=== PATIENT | female | born 1965 | race Caucasian/White ===

== ENCOUNTER 2017-05-08 15:50 | Inpatient (IN) | payer BC ==
[2017-05-08] MEDS ORDERED: Bisacodyl 5 MG Tab PO PRN (16:43)
[2017-05-08] MEDS ORDERED: Docusate Sodium 100 MG Cap PO PRN (16:43)
[2017-05-08] MEDS ORDERED: Ondansetron 4 MG/2 ML SDV IV PRN (16:43)
[2017-05-08] MEDS ORDERED: Polyethylene Glycol 3350 Powder 17 GM Packet PO PRN (16:43)
[2017-05-08] MEDS ORDERED: Pantoprazole 40 MG Vial ONE (16:43)
[2017-05-08] MEDS ORDERED: LORazepam 2 MG/ML MDV IV PRN (16:43)
[2017-05-08] MEDS ORDERED: Promethazine 12.5 MG in Sodium Chloride 0.9% 50 ML IV PRN (16:43)
[2017-05-08] MEDS ORDERED: HYDROmorphone 0.5 MG/0.5 ML Syringe IVPUSH PRN (16:43)
[2017-05-08] MEDS ORDERED: Acetaminophen 325 MG Tab PO PRN (16:43)
[2017-05-08] MEDS ORDERED: Albuterol/Ipratropium 3.0-0.5 MG/3 ML Neb Soln NEB PRN (16:43)
[2017-05-08] MEDS ORDERED: Temazepam 15 MG Cap PO PRN (16:43)
--- NOTE | 2017-05-08 16:43 | PCM.HP ---
H&P History of Present Illness - General Date of Service: 05/08/17 Admit Problem/Dx: Acute Mild Pancreatitis Source of Information: Patient, Provider, RN Notes Reviewed, Other (Clinic notes ) History Limitations: Reports: No Limitations - History of Present Illness Initial Comments - Free Text/Narative: This is a 51 yo white female with past medical hx/o lower abdominal pain, bilateral hip arthritis, bilateral hip bursitis, esophageal spasm, chronic fatigue, external hemorrhoids, left hip pain possible due to early chondrocalcinosis, and tinea versicolor, who initially initially seen at [facility] and was found to have a subtle early pancreatitis on abdominal/ pelvis CT scan. Patient reports abdominal pain that started Thursday. She describes her pain as sharp with radiation to the back. She kind of feels bloated, gassy and constipated. She rates her pain at 5/10. Her pain was worse last night and rates it at 12 out of 10 after she had something to eat. However she denies any other associated GI symptoms. She took Advil and Dulcolax but without much relief. Her last menstrual period was last Thursday and ended on Thursday. Patient presented to her primary care office today for worsening abdominal pain. She denies any signs of systemic infection. She reports no urinary issues. Her initial workup in the clinic shows a CMP significant for glucose of 125, alkaline phosphatase of 145, AST of 69, ALT of 104, and amylase of 156. Lipase level is still pending. Her CBC is unremarkable. Her UA is not suggestive of urinary tract infection. Abdominal/pelvis CT scan with contrast report reads subtle early changes of acute pancreatitis. No evidence of pancreatic necrosis, hemorrhage, or abscess. Small probable benign hemangioma in the dome of the right hepatic lobe measuring up to 2.2 x 2.8 cm. Liver, gallbladder, spleen, pancreas, adrenal glands, and both kidneys are otherwise clearly normal in appearance. No evidence for bowel obstruction or free intraperitoneal air. Normal appendix. Fallopian tube closure devices bilaterally. No definite pathologic lymphadenopathy. No acute bony abnormalities. Patient comes in as a direct admission for medical management of subtle acute pancreatitis. She is full code. Upper Abdomen Pain Score (Numeric/FACES): 3 - Related Data Allergies/Adverse Reactions: Allergies Allergy/AdvReac Type Severity Reaction Status Date / Time hay fever Allergy Mild Sneezing Uncoded 05/08/17 18:36 Home Medications: Home Meds Multivitamin [Multivitamins] 1 tab PO DAILY 12/26/13 [History] Fexofenadine/Pseudoephedrine [Marta-D 12 Hour] 1 tab PO DAILY 10/30/14 [ History] Cholecalciferol (Vitamin D3) [Vitamin D3] 2,000 unit PO 05/08/17 [History] Social & Family History - Tobacco Use Smoking Status *Q: Never Smoker Second Hand Smoke Exposure: No - Recreational Drug Use Recreational Drug Use: No H&P Review of Systems - Review of Systems: Review Of Systems: See Below General: Denies: Fever, Chills, Malaise, Weakness, Fatigue HEENT: Reports: No Symptoms Pulmonary: Denies: Shortness of Breath Cardiovascular: Denies: Chest Pain, Palpitations, Dyspnea on Exertion, Lightheadedness Gastrointestinal: Reports: Abdominal Pain, Constipation, Vomiting (bloated and gassy) Genitourinary: Reports: No Symptoms Musculoskeletal: Reports: Back Pain. Denies: Neck Pain, Joint Pain, Muscle Pain , Muscle Stiffness Skin: Denies: Cyanosis, Mottled, Pallor, Bruising, Rash, Erythema, Wound, Lesions Psychiatric: Denies: Confusion, Depression, Anxiety, Agitation, Hallucinations Neurological: Denies: Confusion, Difficulty Walking, Weakness, Gait Disturbance Hematologic/Lymphatic: Reports: No Symptoms Immunologic: Reports: No Symptoms Exam - Exam Exam: See Below - Exam General: Alert, Oriented, Cooperative, Mild Distress, Other (Obese) HEENT: Conjunctiva Clear, EACs Clear, EOMI, Hearing Intact, Mucosa Moist & [place] , Nares Patent, Normal Nasal Septum, Posterior Pharynx Clear, Pupils Equal, Pupils Reactive Neck: Supple, Trachea Midline, +2 Carotid Pulse wo Bruit, Full Range of Motion Lungs: Clear to Auscultation, Normal Respiratory Effort Cardiovascular: Regular Rate, Regular Rhythm GI/Abdominal Exam: Normal Bowel Sounds, Soft, No Organomegaly (epigastric), No Distention, No Abnormal Bruit, No Mass, Tender. No: Guarding, Rigid, Rebound, Hepatomegaly (Female) Exam: Deferred Rectal (Female) Exam: Deferred Back Exam: Normal Inspection, Decreased Range of Motion Extremities: Normal Inspection, Normal Range of Motion, Non-Tender, No Pedal Edema, Normal Capillary Refill Peripheral Pulses: 3+: Posterior Tibial (L), Posterior Tibial (R), Dorsalis Pedis (L), Dorsalis Pedis (R) Skin: Warm, Dry, Intact Neuro Extensive - Mental Status: Oriented x3, Normal Cognition, Memory Intact Neuro Extensive - Motor, Sensory, Reflexes: CN II-XII Intact, Normal Gait Psychiatric: Alert, Normal Affect, Normal Mood - Patient Data Result Diagrams: 05/09/17 06:00 *Q Meaningful Use (ADM) - VTE *Q VTE Criteria *Q: - Stroke *Q Stroke Criteria *Q: - AMI *Q AMI Criteria *Q: Problem List Initiated/Reviewed/Updated: Yes Orders Last 24hrs: Active Orders 24 hr Category Date Time Status CULTURE URINE [RM] Routine Lab 05/08/17 16:36 Uncollected UA W/MICROSCOPIC [URIN] Routine Lab 05/08/17 16:35 Uncollected Assessment/Plan Comment:: Assessment/Plan: Acute: Abdominal Pain - Carries a hx/o chronic abdominal pain - Risk factor is estrogen use known to cause chronic abdominal pain - 2/2 subtle acute pancreatitis +/- hepatic hemangioma - PRN pain management Acute Pancreatitis - Subtle per CT scan - No Lipase level, Amylase is mildly elevated at 156 - Supportive Care and IV Fluids - She is hemodynamically stable - VIKRAM's criteria is incomplete and very minimal - PRN pain medications - Clear liquid diet and advance as tolerated with non-greasy and non-fatty meal Hepatic Hemangioma - Right Hepatic Lobe 2.4 x 2.8 cm - Small Probable B9 per CT scan - She used to be on Ortho Evra Probably Dyspepsia - Bloated/Gassy - PPI IVP x1 now and then H2B - Clear liquids for now Chronic: Lower Abdominal Pain Bilateral Hip Arthritis Hx/o Hip Bursitis Esophageal Spasm Fatigue External Hemorrhage Hip Pain 2/2 possible early chrondrocalcinosis Tinea Versicolor Plan: Admit to Med-Surg Routine AM Labs Lipase and CRP Level test Supportive Care Resume Home Meds DVT PPx: SCDs GI PPx: PPI and H2B Code Status: 1
[2017-05-08] MEDS ORDERED: hydrALAZINE 20 MG/ML SDV IVPUSH PRN (16:48)
[2017-05-08] MEDS ORDERED: Metoprolol Tartrate 5 MG/5 ML SDV IVPUSH PRN (16:48)
[2017-05-08] MEDS: Acetaminophen/HYDROcodone 325-5 MG Tab PO PRN (18:25)
[2017-05-08] MEDS: Lactated Ringers 1,000 ML IV SCH (18:31)
[2017-05-09] MEDS: Acetaminophen/HYDROcodone 325-5 MG Tab PO PRN (00:44)
[2017-05-09] MEDS: Lactated Ringers 1,000 ML IV SCH ×2 (01:52→10:18)
--- NOTE | 2017-05-09 07:00 | PCM.PN ---
- General Info Date of Service: 05/09/17 Admission Dx/Problem (Free Text): Acute Mild Pancreatitis Subjective Update: Follow Up Functional Status: Reports: Pain Controlled, Ambulating, Urinating, New Symptoms (HAMMOND) - Review of Systems General: Denies: Fever, Weakness, Fatigue, Malaise, Chills HEENT: Reports: No Symptoms Pulmonary: Denies: Shortness of Breath Cardiovascular: Denies: Chest Pain, Palpitations, Lightheadedness Gastrointestinal: Reports: Abdominal Pain, Flatus. Denies: Decreased Appetite, Diarrhea, Difficulty Swallowing, Nausea, Vomiting Genitourinary: Reports: No Symptoms Musculoskeletal: Reports: No Symptoms Skin: Denies: Cyanosis, Rash Neurological: Reports: Headache. Denies: Difficulty Walking, Weakness, Gait Disturbance Psychiatric: Denies: Depression, Anxiety, Agitation Systems Review Comment:: She did not sleep well last not. She has throbbing headache localized to her b/ l [employer]. She reports no radiation or aura. She still has abdominal pain, feel bloated and gassy. She attributed 5 mins after eating something this morning. Patient carries a hx/o esophageal spasm s/p dilation 2.5 years ago. She used to take nitroglycerine but has not taken in a long time. Her lipase level this am is within normal limits. Her vitals are stable. - Patient Data Vitals - Most Recent: Last Vital Signs Temp 36.6 C 05/09/17 03:47 Pulse 73 05/09/17 03:47 Resp 16 05/09/17 03:47 BP 98/72 05/09/17 03:47 Pulse Ox 95 05/09/17 03:47 Weight - Most Recent: 98.747 kg I&O - Last 24 Hours: Intake & Output 05/08/17 05/08/17 05/09/17 14:59 22:59 06:59 Intake Total 210 500 Output Total 1050 Balance 210 -550 Lab Results Last 24 Hours: Laboratory Results - last 24 hr 05/08/17 05/08/17 05/08/17 Range/Units 17:07 17:07 17:07 WBC (3.98-10.04) K/mm3 RBC (3.98-5.22) M/mm3 Hgb (11.2-15.7) gm/L Hct (34.1-44.9) % MCV (79.4-94.8) fl MCH (25.6-32.2) pg MCHC (32.2-35.5) g/dl RDW Std Deviation (36.4-46.3) fL Plt Count (182-369) K/mm3 MPV (9.4-12.3) fl Neut % (Auto) (34.0-71.1) % Lymph % (Auto) (19.3-51.7) % [place] % (Auto) (4.7-12.5) % Eos % (Auto) (0.7-5.8) Baso % (Auto) (0.1-1.2) % Neut # (Auto) (1.56-6.13) K/mm3 Lymph # (Auto) (1.18-3.74) K/mm3 [place] # (Auto) (0.24-0.36) K/mm3 Eos # (Auto) (0.04-0.36) K/mm3 Baso # (Auto) (0.01-0.08) K/mm3 C-Reactive Protein 8.8 H* (<1.0) mg/dL Lipase 716 H (73-393) U/L HCG, Qual Negative (NEGATIVE) Urine Color (Yellow) Urine Appearance (Clear) Urine pH (5.0-8.0) Ur Specific [place] (1.005-1.030) Urine Protein (Negative) Urine Glucose (UA) (Negative) Urine Ketones (Negative) Urine Occult Blood (Negative) Urine Nitrite (Negative) Urine Bilirubin (Negative) Urine Urobilinogen (0.2-1.0) Ur Leukocyte Esterase (Negative) Urine RBC (0-5) /hpf Urine WBC (0-5) /hpf Ur Epithelial Cells (0-5) /hpf Urine Bacteria (FEW) /hpf Urine Mucus (FEW) /hpf 05/08/17 05/09/17 Range/Units 18:10 06:00 WBC 6.45 (3.98-10.04) K/mm3 RBC 4.39 (3.98-5.22) M/mm3 Hgb 13.5 (11.2-15.7) gm/L Hct 41.9 (34.1-44.9) % MCV 95.4 H (79.4-94.8) fl MCH 30.8 (25.6-32.2) pg MCHC 32.2 (32.2-35.5) g/dl RDW Std Deviation 44.3 (36.4-46.3) fL Plt Count 336 (182-369) K/mm3 MPV 9.8 (9.4-12.3) fl Neut % (Auto) 55.1 (34.0-71.1) % Lymph % (Auto) 30.1 (19.3-51.7) % [place] % (Auto) 9.3 (4.7-12.5) % Eos % (Auto) 4.5 (0.7-5.8) Baso % (Auto) 0.8 (0.1-1.2) % Neut # (Auto) 3.56 (1.56-6.13) K/mm3 Lymph # (Auto) 1.94 (1.18-3.74) K/mm3 [place] # (Auto) 0.60 H (0.24-0.36) K/mm3 Eos # (Auto) 0.29 (0.04-0.36) K/mm3 Baso # (Auto) 0.05 (0.01-0.08) K/mm3 C-Reactive Protein (<1.0) mg/dL Lipase (73-393) U/L HCG, Qual (NEGATIVE) Urine Color Yellow (Yellow) Urine Appearance Clear (Clear) Urine pH 6.0 (5.0-8.0) Ur Specific [place] 1.015 (1.005-1.030) Urine Protein Negative (Negative) Urine Glucose (UA) Negative (Negative) Urine Ketones Trace H (Negative) Urine Occult Blood Negative (Negative) Urine Nitrite Negative (Negative) Urine Bilirubin Negative (Negative) Urine Urobilinogen 0.2 (0.2-1.0) Ur Leukocyte Esterase Trace H (Negative) Urine RBC 0-5 (0-5) /hpf Urine WBC 5-10 H (0-5) /hpf Ur Epithelial Cells 0-5 (0-5) /hpf Urine Bacteria Few (FEW) /hpf Urine Mucus Not seen (FEW) /hpf Med Orders - Current: Current Medications Acetaminophen (Tylenol) 650 mg PO Q4H PRN PRN Reason: Pain (Mild 1-3)/fever Hydrocodone Bitart/Acetaminophen (Crane 325-5 Mg) 1 tab PO Q4H PRN PRN Reason: Pain (moderate 4-6) Last Admin: 05/09/17 00:44 Dose: 1 tab Albuterol/Ipratropium (Duoneb 3.0-0.5 Mg/3 Ml) 3 ml NEB Q4H PRN PRN Reason: Shortness Of Breath/wheezing Bisacodyl (Dulcolax) 5 mg PO DAILY PRN PRN Reason: Constipation Docusate Sodium (Colace) 100 mg PO BID PRN PRN Reason: Constipation Famotidine (Pepcid) 20 mg PO BID ERIC Hydralazine HCl (Apresoline) 20 mg IVPUSH Q4H PRN PRN Reason: Hypertension Hydromorphone HCl (Dilaudid) 0.25 mg IVPUSH Q2H PRN PRN Reason: Pain (severe 7-10) Lactated Ringer's (Ringers, Lactated) 1,000 mls @ 125 mls/hr IV ASDIRECTED REPLACED BY [facility] Last Admin: 05/09/17 01:52 Dose: 125 mls/hr Promethazine HCl 12.5 mg/ (Sodium Chloride) 50.5 mls @ 100 mls/hr IV Q6H PRN PRN Reason: Nausea/Vomiting Lorazepam (Ativan) 1 mg IV Q6H PRN PRN Reason: Anxiety Magnesium Sulfate (Pharmacy To Dose - Magnesium Replacement) 1 dose .XX ASDIRECTED REPLACED BY [facility] Metoprolol Tartrate (Lopressor) 5 mg IVPUSH Q4H PRN PRN Reason: Tachycardia Multivitamins (Thera) 1 each PO DAILY REPLACED BY [facility] Non-Formulary Medication (Fexofenadine/Pseudoephedrine) 1 tab PO DAILY REPLACED BY [facility] Ondansetron HCl (Zofran) 4 mg IV Q6H PRN PRN Reason: Nausea/Vomiting Polyethylene Glycol (Miralax) 17 gm PO DAILY PRN PRN Reason: Constipation Potassium Chloride (Pharmacy To Dose - Potassium Replacement) 1 dose .XX ASDIRECTED REPLACED BY [facility] Senna/Docusate Sodium (Senna Plus) 1 tab PO BID PRN PRN Reason: Constipation Temazepam (Restoril) 15 mg PO BEDTIME PRN PRN Reason: Sleep Last Admin: 05/08/17 21:40 Dose: 15 mg Discontinued Medications Pantoprazole Sodium (Protonix Iv) 40 mg .XX ONETIME ONE Stop: 05/08/17 16:44 Last Admin: 05/08/17 18:26 Dose: 40 mg - Exam General: Alert, Oriented, Cooperative, No Acute Distress, Other (Obese) HEENT: Pupils Equal, Pupils Reactive, EOMI, Mucous Membr. Moist/[place] Neck: Supple, Trachea Midline, No JVD Lungs: Clear to Auscultation, Normal Respiratory Effort Cardiovascular: Regular Rate, Regular Rhythm GI/Abdominal Exam: Normal Bowel Sounds, No Organomegaly, No Distention, No Abnormal Bruit, No Mass, Pelvis Stable, Tender (epigastric). No: Guarding, Rigid, Rebound (Female) Exam: Deferred Back Exam: Normal Inspection, Decreased Range of Motion Extremities: Normal Inspection, Normal Range of Motion, Non-Tender, No Pedal Edema, Normal Capillary Refill Peripheral Pulses: 3+: Posterior Tibial (L), Posterior Tibial (R), Dorsalis Pedis (L), Dorsalis Pedis (R) Skin: Warm, Dry, Intact Neurological: No New Focal Deficit Psy/Mental Status: Alert, Normal Affect, Normal Mood - Problem List Review Problem List Initiated/Reviewed/Updated: Yes - My Orders Last 24 Hours: My Active Orders 05/08/17 16:43 Ambulate [RC] 10,15,20 Height and Weight [RC] 0400 Intake and Output [RC] 04,16 Up ad Viviana [RC] BID VTE/DVT Education [RC] 10, Vital Signs [RC] Q4HR Acetaminophen [Tylenol] 650 mg PO Q4H PRN Acetaminophen/HYDROcodone [Crane 325-5 MG] 1 tab PO Q4H PRN Albuterol/Ipratropium [DuoNeb 3.0-0.5 MG/3 ML] 3 ml NEB Q4H PRN Bisacodyl [Dulcolax] 5 mg PO DAILY PRN Docusate Sodium [Colace] 100 mg PO BID PRN Docusate Sodium/Sennosides [Senna Plus] 1 tab PO BID PRN HYDROmorphone [Dilaudid] 0.25 mg IVPUSH Q2H PRN LORazepam [Ativan] 1 mg IV Q6H PRN Ondansetron [Zofran] 4 mg IV Q6H PRN Polyethylene Glycol 3350 [MiraLAX] 17 gm PO DAILY PRN Promethazine [Phenergan] 12.5 mg Sodium Chloride 0.9% [Normal Saline] 50 ml IV Q6H Temazepam [Restoril] 15 mg PO BEDTIME PRN Sequential Compression Device [OM.PC] Per Unit Routine Resuscitation Status Routine 05/08/17 16:45 Antiembolic Devices [RC] BID Lactated Ringers [Ringers, Lactated] 1,000 ml IV ASDIRECTED 05/08/17 16:48 Patient Status [ADT] Routine Metoprolol Tartrate [Lopressor] 5 mg IVPUSH Q4H PRN hydrALAZINE [Apresoline] 20 mg IVPUSH Q4H PRN 05/08/17 17:00 Magnesium Rep Pharmacy to Dose [Pharmacy to Dose - Magnesium Replacement] 1 dose .XX ASDIRECTED Potassium Rep Pharmacy to Dose [Pharmacy to Dose - Potassium Replacement] 1 dose .XX ASDIRECTED 05/08/17 18:10 CULTURE URINE [RM] Routine 05/08/17 Dinner Clear Liquid Diet [DIET] 05/09/17 06:00 BASIC METABOLIC PANEL,BMP [CHEM] AM C-REACTIVE PROTEIN [CHEM] AM LIPASE [CHEM] AM MAGNESIUM [CHEM] AM 05/09/17 09:00 Famotidine [Pepcid] 20 mg PO BID Fexofenadine/Pseudoephedrine 1 tab PO DAILY Multivitamins,Therapeutic [Thera] 1 each PO DAILY 05/10/17 05:11 BASIC METABOLIC PANEL,BMP [CHEM] AM C-REACTIVE PROTEIN [CHEM] AM CBC WITH AUTO DIFF [HEME] AM MAGNESIUM [CHEM] AM 05/11/17 05:11 BASIC METABOLIC PANEL,BMP [CHEM] AM C-REACTIVE PROTEIN [CHEM] AM CBC WITH AUTO DIFF [HEME] AM MAGNESIUM [CHEM] AM - Plan Plan:: Assessment/Plan: Acute: Abdominal Pain - Carries a hx/o chronic abdominal pain from esophageal spasm - This suggestive more of esophageal spasm/intestinal angina +/- hepatic hemangioma - PRN pain management and nitrostat - Start PPI BID Dyspepsia - Bloated/Gassy - Has hx/o esophageal spasm - Continue PPI and H2B - Nitrostat PRN for intestinal Angina - Continue clear liquid diet 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 [place] in 2013 and underwent removal of "meat" on distal esophagus due to reflux stricture at the GE junction body - Used to take nitroglycerine in the past but has not had any issues until lately - She needs to be evaluated again - Will refer her to GI likely after holiday i.e. next years - PRN nitro for now Hepatic Hemangioma, Stable - Right Hepatic Lobe 2.4 x 2.8 cm - Small Probable B9 per CT scan - She used to be on Ortho Evra Cephalalgia - Narcotic Induced and +/- Caffeine withdrawal - Ordered to drink coffee or usual caffeinated products she usually take routinely - Fioricet PRN Q6 hrs Resolved: S/p Acute Pancreatitis - Subtle per CT scan - No Lipase level, Amylase is mildly elevated at 156; lipase is 305 (normal) - Supportive Care and IV Fluids - She is hemodynamically stable - VIKRAM's criteria is incomplete and very minimal - PRN pain medications - Clear liquid diet and advance as tolerated with non-greasy and non-fatty meal Chronic: Lower Abdominal Pain Bilateral Hip Arthritis Hx/o Hip Bursitis Esophageal Spasm Fatigue External Hemorrhage Hip Pain 2/2 possible early chrondrocalcinosis Tinea Versicolor Plan: She is about the same if not a little worse Routine AM Labs Supportive Care CE and EKG x1; may repeat in AM Advance diet as tolerated Additional orders as above DVT PPx: SCDs GI PPx: PPI and H2B Code Status: 1
[2017-05-09] MEDS: Multivitamins,Therapeutic Tab PO SCH (08:20)
[2017-05-09] MEDS: Famotidine 20 MG Tab PO SCH ×2 (08:20→20:46)
[2017-05-09] MEDS: PSEUDOEPHEDRINE PO SCH (08:21)
[2017-05-09] MEDS: FEXOFENADINE PO SCH (08:21)
[2017-05-09] MEDS ORDERED: Pantoprazole 40 MG Vial IVPUSH ONE (10:03)
[2017-05-09] MEDS ORDERED: Acetaminophen/Butalbital/Caffeine 325-50-40 MG Tab PO PRN (10:05)
[2017-05-09] MEDS ORDERED: Ibuprofen 600 MG Tab PO PRN (10:19)
[2017-05-09] MEDS ORDERED: Nitroglycerin 0.3 MG Tab.SL SL ONE (10:21)
--- NOTE | 2017-05-09 14:41 | PCM.SN ---
- Free Text/Narrative Note: Went and reassessed patient, she was feeling much better. HAMMOND gone and her abdominal pain had improved considerably. She had no issues with fioricet or nitrostat.
[2017-05-09] MEDS ORDERED: Nitroglycerin 0.4 MG Tab.SL SL PRN (15:05)
[2017-05-09] MEDS: Pantoprazole 40 MG Tab.CR PO SCH (20:46)
[2017-05-09] MEDS ORDERED: Pantoprazole 40 MG Vial IVPUSH SCH (21:00)
--- NOTE | 2017-05-09 21:26 | PCM.DCSUM1 ---
Discharge Summary - Hospital Course Brief History: This is a 51 yo white female with past medical hx/o lower abdominal pain, bilateral hip arthritis, bilateral hip bursitis, esophageal spasm, chronic fatigue, external hemorrhoids, left hip pain possible due to early chondrocalcinosis, and tinea versicolor, who was initially seen at [facility] and was found to have an early pancreatitis on abdominal/pelvis CT scan. - Discharge Data Discharge Date: 05/10/17 Discharge Disposition: Home, Self-Care 01 Condition: Good - Discharge Diagnosis/Problem(s) (1) Dyspepsia SNOMED Code(s): 291506207 ICD Code: R10.13 - EPIGASTRIC PAIN Status: Acute (2) Intestinal angina SNOMED Code(s): 714574647 ICD Code: K55.1 - CHRONIC VASCULAR DISORDERS OF INTESTINE Status: Acute (3) History of esophageal spasm SNOMED Code(s): 801139437 ICD Code: Z87.19 - PERSONAL HISTORY OF OTHER DISEASES OF THE DIGESTIVE SYSTEM Status: Inactive (4) Hepatic hemangioma SNOMED Code(s): 55107582 ICD Code: D18.03 - HEMANGIOMA OF INTRA-ABDOMINAL STRUCTURES Status: Acute (5) Cephalalgia SNOMED Code(s): 55713750 ICD Code: R51 - HEADACHE Status: Resolved Qualifiers: Headache type: other drug induced headache Intractability: not intractable Qualified Code(s): G44.40 - Drug-induced headache, not elsewhere classified, not intractable (6) Acute pancreatitis SNOMED Code(s): 096368378 ICD Code: K85.90 - ACUTE PANCREATITIS WITHOUT NECROSIS OR INFECTION, UNSP Status: Resolved Qualifiers: Pancreatitis type: idiopathic Acute pancreatitis complication: no infection or necrosis Qualified Code(s): K85.00 - Idiopathic acute pancreatitis without necrosis or infection (7) Abdominal pain SNOMED Code(s): 31463633 ICD Code: R10.9 - UNSPECIFIED ABDOMINAL PAIN Status: Resolved Qualifiers: Abdominal location: upper abdomen, unspecified Qualified Code(s): R10.10 - Upper abdominal pain, unspecified - Patient Summary/Data Operative Procedure(s) Performed: None Complications: None Consults: None Labs Pending at D/C: None Recommended Follow-up Testing/Procedures: None Planned Operative Procedure(s) after DC: None Hospital Course: Patient was primarily admitted for mild acute pancreatitis. She was found to have an inflamed pancreas on CT scan with an elevated lipase level of 716. Patient came in as a directed admit from clinic and she was sent to the floor for immediate treatment. On the floor, she was put on clear liquid diet and provided supportive care to include hydration and pain management. Slowly she improved on this regimen. Her hospital course was complicated by acute onset of her esophageal spasm. But with appropriate treatment she responded well to treatment. Patient was stable upon discharge. She was discharged with PPIs, Fioricet and PRN Nitrostat for her intestinal angina. She was advised to avoid spicy foods for now and also to avoid fatty and greasy meal for the next 3 days. She was further advised to see a GI specialist in [place] for further evaluation of her intestinal angina. Patient expressed understanding and in agreement with the plans as discussed above. All questions were answered. - Patient Instructions Diet: Heart Healthy Diet, Usual Diet as Tolerated Activity: As Tolerated Driving: May Drive Today Showering/Bathing: May Shower Notify Provider of: Fever, Increased Pain, Nausea and/or Vomiting Other/Special Instructions: - Please all medications as directed. - Avoid spicy foods to reduce heart burn/dyspepsia. - Avoid fatty and or greasy meal for 3 days. - Recommend you see a GI specialist in [place] for further evaluation. - Follow up with your PCP in 1 week. - Call your doctor for any questions or concerns after discharge - Discharge Plan Prescriptions/Med Rec: Nitroglycerin [IJP: Nitroglycerin] 0.4 mg SL Q4HR PRN #30 tablet, sublingual PRN Reason: Other Acetaminophen/Butalbital/Caff [Fioricet 325-50-40 MG] 2 tab PO Q6H PRN #20 tablet PRN Reason: Headache Omeprazole Magnesium [Prilosec Otc] 20 mg PO BID #60 tablet. Home Medications: Home Meds Multivitamin [Multivitamins] 1 tab PO DAILY 12/26/13 [History] Fexofenadine/Pseudoephedrine [Marta-D 12 Hour] 1 tab PO DAILY 10/30/14 [ History] Cholecalciferol (Vitamin D3) [Vitamin D3] 2,000 unit PO DAILY 05/08/17 [History] Acetaminophen/Butalbital/Caff [Fioricet 325-50-40 MG] 2 tab PO Q6H PRN #20 tablet 05/09/17 [Rx] Nitroglycerin [IJP: Nitroglycerin] 0.4 mg SL Q4HR PRN #30 tablet, sublingual [Rx] Omeprazole Magnesium [Prilosec Otc] 20 mg PO BID #60 tablet. 05/09/17 [Rx] Patient Handouts: Gastroesophageal Reflux Scan, Acute Pancreatitis, Easy-to- Read, Esophageal Spasm - Discharge Summary/Plan Comment DC Time >30 min.: Yes (45 mins) Discharge Summary/Plan Comment: Discharge to Home - General Info Date of Service: 05/10/17 Admission Dx/Problem (Free Text: Acute Mild Pancreatitis Subjective Update: Follow Up Functional Status: Reports: Pain Controlled, Tolerating Diet, Ambulating, Urinating. Denies: New Symptoms - Review of Systems General: Denies: Fever, Weakness, Fatigue, Malaise, Chills HEENT: Reports: No Symptoms Pulmonary: Denies: Shortness of Breath Cardiovascular: Denies: Chest Pain Gastrointestinal: Reports: Flatus. Denies: Abdominal Pain, Constipation, Decreased Appetite, Diarrhea, Hematochezia, Melena, Nausea, Vomiting Genitourinary: Reports: No Symptoms Musculoskeletal: Reports: No Symptoms Skin: Denies: Cyanosis, Mottled, Pallor, Diaphoresis, Pruritis, Rash Neurological: Denies: Confusion, Difficulty Walking, Weakness, Gait Disturbance Psychiatric: Denies: Depression, Anxiety, Agitation, Hallucinations Systems Review Comment: No significant overnight or acute issues. She was doing relatively well. She had no new complaints. - Patient Data Vitals - Most Recent: Last Vital Signs Temp 36.7 C 05/09/17 17:06 Pulse 92 05/09/17 17:06 Resp 16 05/09/17 17:06 BP 130/80 05/09/17 17:06 Pulse Ox 95 05/09/17 17:06 Weight - Most Recent: 98.747 kg I&O - Last 24 hours: Intake & Output 05/09/17 05/09/17 05/09/17 06:59 14:59 22:59 Intake Total 500 480 780 Output Total 1050 1800 Balance -550 480 -1020 Lab Results - Last 24 hrs: Laboratory Results - last 24 hr 05/09/17 05/09/17 05/09/17 Range/Units 06:00 06:00 16:05 WBC 6.45 (3.98-10.04) K/mm3 RBC 4.39 (3.98-5.22) M/mm3 Hgb 13.5 (11.2-15.7) gm/L Hct 41.9 (34.1-44.9) % MCV 95.4 H (79.4-94.8) fl MCH 30.8 (25.6-32.2) pg MCHC 32.2 (32.2-35.5) g/dl RDW Std Deviation 44.3 (36.4-46.3) fL Plt Count 336 (182-369) K/mm3 MPV 9.8 (9.4-12.3) fl Neut % (Auto) 55.1 (34.0-71.1) % Lymph % (Auto) 30.1 (19.3-51.7) % Pierce % (Auto) 9.3 (4.7-12.5) % Eos % (Auto) 4.5 (0.7-5.8) Baso % (Auto) 0.8 (0.1-1.2) % Neut # (Auto) 3.56 (1.56-6.13) K/mm3 Lymph # (Auto) 1.94 (1.18-3.74) K/mm3 Pierce # (Auto) 0.60 H (0.24-0.36) K/mm3 Eos # (Auto) 0.29 (0.04-0.36) K/mm3 Baso # (Auto) 0.05 (0.01-0.08) K/mm3 Sodium 141 (136-145) mEq/L Potassium 4.2 (3.5-5.1) mEq/L Chloride 106 (98-107) mEq/L Carbon Dioxide 27 (21-32) mEq/L Anion Gap 12.2 (5-15) BUN 10 (7-18) mg/dL Creatinine 0.9 (0.55-1.02) mg/dL Est Cr Clr Drug Dosing 61.86 mL/min Estimated GFR (MDRD) > 60 (>60) mL/min BUN/Creatinine Ratio 11.1 L (14-18) Glucose 102 (74-106) mg/dL Calcium 8.4 L (8.5-10.1) mg/dL Magnesium 2.2 (1.8-2.4) mg/dl CK-MB (CK-2) < 0.5 (0-3.6) ng/ml Troponin I < 0.017 (0.00-0.056) ng/mL C-Reactive Protein 6.9 H* (<1.0) mg/dL Lipase 305 (73-393) U/L Med Orders - Current: Current Medications Acetaminophen (Tylenol) 650 mg PO Q4H PRN PRN Reason: Pain (Mild 1-3)/fever Acetaminophen/Butalbital/Caffeine (Fioricet 325-50-40 Mg) 2 tab PO Q6H PRN PRN Reason: Headache Last Admin: 05/09/17 10:22 Dose: 2 tab Hydrocodone Bitart/Acetaminophen ([place] 325-5 Mg) 1 tab PO Q4H PRN PRN Reason: Pain (moderate 4-6) Last Admin: 05/09/17 00:44 Dose: 1 tab Albuterol/Ipratropium (Duoneb 3.0-0.5 Mg/3 Ml) 3 ml NEB Q4H PRN PRN Reason: Shortness Of Breath/wheezing Bisacodyl (Dulcolax) 5 mg PO DAILY PRN PRN Reason: Constipation Docusate Sodium (Colace) 100 mg PO BID PRN PRN Reason: Constipation Famotidine (Pepcid) 20 mg PO BID ERIC Last Admin: 05/09/17 20:46 Dose: 20 mg Hydralazine HCl (Apresoline) 20 mg IVPUSH Q4H PRN PRN Reason: Hypertension Hydromorphone HCl (Dilaudid) 0.25 mg IVPUSH Q2H PRN PRN Reason: Pain (severe 7-10) Promethazine HCl 12.5 mg/ (Sodium Chloride) 50.5 mls @ 100 mls/hr IV Q6H PRN PRN Reason: Nausea/Vomiting Ibuprofen (Motrin) 600 mg PO Q6H PRN PRN Reason: Headache Lorazepam (Ativan) 1 mg IV Q6H PRN PRN Reason: Anxiety Magnesium Sulfate (Pharmacy To Dose - Magnesium Replacement) 0 dose .XX ASDIRECTED PRN PRN Reason: RX TO WATCH MAG LEVELS Metoprolol Tartrate (Lopressor) 5 mg IVPUSH Q4H PRN PRN Reason: Tachycardia Multivitamins (Thera) 1 each PO DAILY [facility] Last Admin: 05/09/17 08:20 Dose: 1 each Nitroglycerin (Nitrostat) 0.4 mg SL Q6H PRN PRN Reason: Other Ondansetron HCl (Zofran) 4 mg IV Q6H PRN PRN Reason: Nausea/Vomiting Pantoprazole Sodium (Protonix) 40 mg PO BID@0700,1600 [facility] Last Admin: 05/09/17 20:46 Dose: 40 mg Fexofenadine/ (Pseudoephedrine) 0 each PO DAILY [facility] Last Admin: 05/09/17 08:21 Dose: Not Given Polyethylene Glycol (Miralax) 17 gm PO DAILY PRN PRN Reason: Constipation Potassium Chloride (Pharmacy To Dose - Potassium Replacement) 0 dose .XX ASDIRECTED PRN PRN Reason: RX TO WATCH K LEVELS Senna/Docusate Sodium (Senna Plus) 1 tab PO BID PRN PRN Reason: Constipation Temazepam (Restoril) 15 mg PO BEDTIME PRN PRN Reason: Sleep Last Admin: 05/08/17 21:40 Dose: 15 mg Discontinued Medications Lactated Ringer's (Ringers, Lactated) 1,000 mls @ 125 mls/hr IV ASDIRECTED [facility] Last Admin: 05/09/17 10:18 Dose: 125 mls/hr Nitroglycerin (Nitrostat) 0.3 mg SL ONETIME ONE Stop: 05/09/17 10:22 Last Admin: 05/09/17 10:53 Dose: 0.3 mg Pantoprazole Sodium (Protonix Iv) 40 mg .XX ONETIME ONE Stop: 05/08/17 16:44 Last Admin: 05/08/17 18:26 Dose: 40 mg Pantoprazole Sodium (Protonix Iv) 40 mg IVPUSH Q12H [facility] Pantoprazole Sodium (Protonix Iv) 40 mg IVPUSH ONETIME ONE Stop: 05/09/17 10:04 Last Admin: 05/09/17 10:16 Dose: 40 mg - Exam General: Reports: Alert, Oriented, Cooperative, No Acute Distress, Other (Obese) HEENT: Reports: Pupils Equal, Pupils Reactive, EOMI, Mucous Membr. Moist/[place] Neck: Reports: Supple, Trachea Midline, No JVD, No Thyromegaly Lungs: Reports: Clear to Auscultation, Normal Respiratory Effort Cardiovascular: Reports: Regular Rate, Regular Rhythm GI/Abdominal Exam: Normal Bowel Sounds, Soft, Non-Tender, No Organomegaly, No Distention, No Abnormal Bruit, No Mass (Female) Exam: Deferred Rectal (Female) Exam: Deferred Back Exam: Reports: Normal Inspection, Decreased Range of Motion Extremities: Normal Inspection, Normal Range of Motion, Non-Tender, No Pedal Edema, Normal Capillary Refill Skin: Reports: Warm, Dry, Intact Neurological: Reports: No New Focal Deficit Psy/Mental Status: Reports: Alert, Normal Affect, Normal Mood *Q Meaningful Use (DIS) - VTE *Q VTE Criteria *Q: - Stroke *Q Stroke Criteria *Q: - AMI *Q AMI Criteria *Q:
[2017-05-10] MEDS: Pantoprazole 40 MG Tab.CR PO SCH (06:37)
[2017-05-10] MEDS: Famotidine 20 MG Tab PO SCH (09:33)
[2017-05-10] MEDS: PSEUDOEPHEDRINE PO SCH (09:33)
[2017-05-10] MEDS: FEXOFENADINE PO SCH (09:33)
[2017-05-10] MEDS: Multivitamins,Therapeutic Tab PO SCH (09:33)
[2017-05-10 09:36] VITALS: BP 120/77
== END 2017-05-10 10:20 | disposition home or self-care (01) | DRG 282 ==
LOC: JD.ED 15:50 → UNDOADMIN 15:51 → JD.MS 15:51
PROVIDERS: ADMIT Internal Medicine; ATTEND Internal Medicine
DX: K85.90 Acute pancreatitis without necrosis or infection, unspecified (principal); J30.1 Allergic rhinitis due to pollen; G89.29 Other chronic pain; R10.30 Lower abdominal pain, unspecified; M16.0 Bilateral primary osteoarthritis of hip; K22.4 Dyskinesia of esophagus; R53.83 Other fatigue; B36.0 Pityriasis versicolor; K55.1 Chronic vascular disorders of intestine; Z87.19 Personal history of other diseases of the digestive system; D18.03 Hemangioma of intra-abdominal structures; G44.40 Drug-induced headache, not elsewhere classified, not intractable
CPT/HCPCS: 36415; 80048; 81001; 82553; 83690; 83735; 84484; 84703; 85025; 86140; 87086; 93005; 99222; 99231; 99239; A9270; A9270-GY; C9113; J7120